=== PATIENT | female | born 1970 | race Caucasian/White ===

== ENCOUNTER 2018-08-07 06:51 | Day surgery (SDC) | payer BC ==
--- NOTE | 2018-08-07 06:28 | History and Physical - [place] ---
CHIEF COMPLAINT/HISTORY OF CHIEF COMPLAINT: This patient presents with a post laminectomy radiculopathy. A spinal cord stimulator implant on 03/24/15 resulted in appreciable pain control. Unfortunately over time her pain has progressed and extended not only up, but also down into her extremities and up into her mid back. Complex programming of the current system although resulting in 75-80+% pain control could not reach these newer areas. Multiple attempts at reprogramming failed. She is here for a battery revision and exchange to the new [email or web address] generator which provides multiple new waveform options as well as the ability to superimpose waveforms simultaneously all for better and improved pain control. PAST MEDICAL HISTORY: Hypothyroidism. PAST SURGICAL HISTORY: Shoulder surgery, lumbar spinal surgery and spinal cord implant. MEDICATIONS ON ADMISSION: List to be provided. ALLERGIES: AMBIEN, PAXIL AND VIOXX. SYSTEMS REVIEW: The patient is in no acute distress. The remainder of the systems review is positive for glasses, headaches, thyroid disease, coronary artery disease, reflux, peptic ulcer disease, and depression. PHYSICAL EXAMINATION: Height and weight are not known. Vital signs are not available. HEENT: Within normal limits. LUNGS: Clear. HEART: Rapid and regular. ABDOMEN: Nontender. MUSCULOSKELETAL: Examination of the musculoskeletal system shows the generator in the right posterior gluteal margin. The incisional site is intact. Sensory abreu are intact. NEUROLOGIC: Cranial nerves are intact. IMPRESSION: 1. 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 2. SPINAL CORD STIMULATOR INTERNAL GENERATOR. PLAN: The patient is here on an outpatient basis for a generator exchange. The procedure will be considered outpatient although an overnight stay will be evaluated. Her pouch will be opened through incision and a new generator will be interfaced to the indwelling leads and the incision closed. A gluteus will be used so showering will be possible right away. Antibiotic therapy will be performed for 10-14 days. JOB NUMBER: [id number] [facility]
[~2018-08-07 06:51] MED LIST: ACETAMINOPHEN 1,000 MG/100 ML BTL IV ONE; CEFAZOLIN 2 Gram 2 GM/50 ML BAG IVPB ONE; FAMOTIDINE 20MG TABLET PO ONE; MECLIZINE 25 MG TABLET PO ONE; METOCLOPRAMIDE 10 MG TABLET PO ONE
[2018-08-07] MEDS ORDERED: LIDOCAINE 1% W/EPI 1:200,000 MPF 30ML SQ ONE (06:52)
[2018-08-07] MEDS ORDERED: FENTANYL PF 100MCG/2ML VIAL IV ONE (06:52)
[2018-08-07] MEDS ORDERED: LIDOCAINE 2% MDV (20MG/ML) 20ML VIAL IV ONE (06:52)
[2018-08-07] MEDS ORDERED: PROPOFOL 10 MG/ML VIAL IV ONE (06:52)
[2018-08-07] MEDS ORDERED: OXYCODONE/APAP 10MG-325MG TABLET PO ONE (06:52)
[2018-08-07] MEDS ORDERED: BUPIVACAINE 0.5% W/EPI MPF 30 ML VIAL IVP ONE (06:52)
[2018-08-07] MEDS ORDERED: MIDAZOLAM HCL 2MG/2ML VIAL IV ONE (06:52)
--- NOTE | 2018-08-07 17:49 | Operative Note ---
DATE OF SURGERY: 08/07/18 PREOPERATIVE DIAGNOSES: 1. POST LUMBAR LAMINECTOMY RADICULOPATHY, ICD-10 CODE = M54.16 AND M54.17 AND M96.1. 2. SPINAL CORD STIMULATOR INTERNAL GENERATOR. OPERATION: FLUOROSCOPICALLY-GUIDED INCISION, SUBCUTANEOUS DISSECTION, REMOVAL AND REPLACEMENT OF AN INTERNAL PULSE GENERATOR AT RIGHT POSTERIOR GLUTEAL MARGIN. SURGEON: GIAN BELLE D.O. ANESTHESIA: LOCAL SEDATION. ANESTHESIA PROVIDER: INDICATION: This patient presents with pain, which is bilateral low back, hip, and leg. Due to the failure of therapy, a spinal cord stimulator was implanted. Over the last number of weeks to months, this patient has had an increasing amount of pain, which has been uncontrolled by way of the stimulator. It was felt that replacement of the generator to the new generation generator would provide greater degrees of functionality by improving waveform generation and being able to overlap multiple waveforms simultaneously. She is here for the internal pulse generator swap. PROCEDURE: Intravenous line, vital sign monitoring, IV sedation, prepped and draped sterile technique. Under imaging, the generator pouch at the right posterior gluteal margin infiltrated, incision made, and subcutaneous dissection was conducted to the generator, the generator was then exteriorized and from the indwelling leads. Antibiotic irrigation and Bovie for hemostasis. The new generator placed onto the field, [employer], and interfaced to the internal leads. Antibiotic irrigation and Bovie for hemostasis. The generator was placed into the pouch after securing to the leads and the incision was closed using STRATAFIX suture 2-0 fascia, 3-0 skin, and a Dermabond closure was then used to approximate the edges of both wounds. She was transported to the Recovery Room stable once the Dermabond was in place. Once awake and alert, complex programming of the internal generator performed in the Recovery Room over 20 minutes re-establishing stimulation and pain control to all of the appropriate areas. She was instructed on the use of the system, provided information and error messaging, and then prepared for discharge. DISCHARGE INSTRUCTIONS: 1. Sites remain clean and dry. The Dermabond will allow showering but she should not sit in water. 2. Standard medications resumed including the antibiotic Levaquin. She will take 500 mg once a day for 14 days. 3. The office will contact the patient in 24-48 hours to set up a time in 7-10 days for us to check the sites. Until then, she is to keep her activities low. All other instructions provided, numbers to contact, problems given. She was then prepared for discharge. cc: Dr. Irina Pascal JOB NUMBER: [id number] [facility]
== END 2018-08-07 09:50 | disposition home or self-care (01) ==
LOC: SUR 06:51
PROVIDERS: ATTEND Pain Medicine Interventional Pain Medicine
DX: M54.16 Radiculopathy, lumbar region (principal); M54.17 Radiculopathy, lumbosacral region; M96.1 Postlaminectomy syndrome, not elsewhere classified; F31.9 Bipolar disorder, unspecified; J44.9 Chronic obstructive pulmonary disease, unspecified; E03.9 Hypothyroidism, unspecified; R05 Cough; K21.9 Gastro-esophageal reflux disease without esophagitis
CPT/HCPCS: 63685; 00300; 95972; 81025; J3010; J0690; C1820